=== PATIENT | female | born 1980 | race Caucasian/White ===

== ENCOUNTER 2021-03-13 13:27 | Emergency (ER) | payer SELFPAY ==
[2021-03-13 13:39] VITALS: BMI 24.8
[2021-03-13] MEDS ORDERED: ACETAMINOPHEN 1000 MG/100 ML VIAL (NON FORMULARY) IVPB ONE (14:17)
[2021-03-13] MEDS ORDERED: ACETAMINOPHEN 325 MG TABLET (FP) PO ONE (14:20)
[2021-03-13 15:28] LABS: BASO % 1.1 % (0-2.0); EOS % 4.4 % (0-4.5); HEMATOCRIT 40.6 % (32.4-45.2); HEMOGLOBIN 13.2 GM/dL (10.7-15.3); MCH 28.9 pg (25.7-33.7); MCHC 32.4 g/dl (32.0-36.0); MEAN PLT VOLUME 7.5 fl (7.5-11.1); MONO % 12.1 % (3.8-10.2); NEUT % 39.4 % (42.8-82.8); PLATELET COUNT 292 K/MM3 (134-434); RBC 4.56 M/mm3 (3.60-5.2); RDW 15.9 % (11.6-15.6)
[2021-03-13 16:16] LABS: CHLORIDE 107 mmol/L (98-107); SODIUM 139 mmol/L (136-145)
[2021-03-13 16:18] LABS: ANION GAP 5 MMOL/L (8-16); CALCIUM 8.6 mg/dL (8.5-10.1); CO2 27 mmol/L (21-32); GLUCOSE,RANDOM 77 mg/dL (74-106)
[2021-03-13 16:19] LABS: ALBUMIN 3.5 g/dl (3.4-5.0); BLOOD UREA NITROGEN 6.2 mg/dL (7-18)
[2021-03-13 16:22] LABS: CREATININE 0.8 mg/dL (0.55-1.3); SGOT/AST 12 U/L (15-37); SGPT/ALT 13 U/L (13-61)
[2021-03-13 16:23] LABS: BILIRUBIN,TOTAL 0.7 mg/dL (0.2-1); TOT PROT 7.1 g/dl (6.4-8.2)
[2021-03-13 16:24] LABS: ALK PHOS 59 U/L (45-117)
[2021-03-13 18:19] VITALS: PULSE 65; TEMP 98.1
[2021-03-14 07:58] VITALS: BP 140/103
== END 2021-03-13 18:00 | disposition home or self-care (01) ==
LOC: JER 13:27
DX: R06.02 Shortness of breath (principal); R07.9 Chest pain, unspecified
CPT/HCPCS: 36415; 71045-TC-FY; 80053; 82550; 84484; 84703; 85025; 87804; 93005; 93010; 99285-25; C9803; U0003; U0005

== ENCOUNTER 2023-09-05 16:09 | Emergency (ER) | payer OTHER ==
[2023-09-05 16:42] VITALS: BP 144/101; PULSE 95; RESP 18; TEMP 97.8; BMI 23.3
[2023-09-05] MEDS ORDERED: diphenhydrAMINE HCL 25 MG CAPSULE (FP) PO ONE ×2 (18:02→18:10)
[2023-09-05] MEDS ORDERED: predniSONE 20 MG TABLET (UD) PO ONE (18:09)
[2023-09-05] MEDS ORDERED: predniSONE 20 MG TABLET (UD) ONE (18:11)
== END 2023-09-05 18:31 | disposition home or self-care (01) ==
LOC: JER 16:09 → JERFT 16:09
DX: R21 Rash and other nonspecific skin eruption (principal); L29.9 Pruritus, unspecified; T78.40XA Allergy, unspecified, initial encounter; R22.0 Localized swelling, mass and lump, head
CPT/HCPCS: 99283-25